=== PATIENT | male | born 1970 | race Caucasian/White ===

== ENCOUNTER 2019-04-17 09:57 | Emergency (ER) | payer OTHER ==
[~2019-04-17] VITALS: Ht 167.6 cm; Wt 93.0 kg
[~2019-04-17 09:57] MED LIST: CEPH-443 PO; MUPI22OI2 TOP; NAPR-985 PO; SULF1TAB31 PO
[2019-04-17 10:08] VITALS: BP 162/87; Ht 167.6 cm; Wt 93.0 kg
[2019-04-17] MEDS ORDERED: LIDOCAINE 1% (MPF) 5 ML VIAL INJ ONE (10:30)
[2019-04-17] MEDS ORDERED: CEFTRIAXONE 1 GM INJ IM ONE (10:30)
[2019-04-17 11:26] VITALS: PULSE 71; RESP 18
== END 2019-04-17 11:27 | disposition home or self-care (01) ==
LOC: FTE 09:57
DX: L03.114 Cellulitis of left upper limb (principal)
CPT/HCPCS: 73110; 96372; 99284; J0696

== ENCOUNTER 2019-04-19 06:11 | Emergency (ER) | payer OTHER ==
[~2019-04-19] VITALS: Ht 172.7 cm; Wt 92.8 kg
[2019-04-19 06:15] VITALS: BP 166/86; PULSE 76; RESP 16; Ht 172.7 cm; Wt 92.8 kg
[2019-04-19] MEDS ORDERED: LIDOCAINE 1% (MPF) 5 ML VIAL INJ ONE (06:30)
== END 2019-04-19 06:58 | disposition home or self-care (01) ==
LOC: FTE 06:11
DX: L02.414 Cutaneous abscess of left upper limb (principal)